=== PATIENT | female | born 1965 | race Hispanic/Latino ===

== ENCOUNTER 2021-02-24 07:06 | Day surgery (SDC) | payer OTHER ==
[~2021-02-24] VITALS: Ht 142.2 cm; Wt 95.3 kg
[~2021-02-24 07:06] MED LIST: 0.9%NACL 1000ML 1,000 ML IV ONE; LISI10TA24 PO; METF-444 PO
[2021-02-24 07:36] LABS: CREATININE 0.6 mg/dL (0.5-1.5)
[2021-02-24 07:44] VITALS: BP 151/84
[2021-02-24] MEDS ORDERED: PROPOFOL 10 MG/ML 20ML VIAL IV ONE (08:31)
[2021-02-24 08:50] VITALS: BP 98/72
[2021-02-24 08:55] VITALS: BP 128/82
== END 2021-02-24 09:20 | disposition home or self-care (01) ==
LOC: DAH 07:06 → ENDO 07:06
PROVIDERS: ATTEND Internal Medicine
DX: R13.10 Dysphagia, unspecified (principal); K92.2 Gastrointestinal hemorrhage, unspecified; R10.9 Unspecified abdominal pain; K31.7 Polyp of stomach and duodenum; K31.89 Other diseases of stomach and duodenum; I10 Essential (primary) hypertension; E11.9 Type 2 diabetes mellitus without complications; E66.01 Morbid (severe) obesity due to excess calories; Z68.37 Body mass index [BMI] 37.0-37.9, adult; Z90.710 Acquired absence of both cervix and uterus; Z79.84 Long term (current) use of oral hypoglycemic drugs; Z79.899 Other long term (current) drug therapy; Z20.822 Contact with and (suspected) exposure to COVID-19
CPT/HCPCS: 36415; 43239; 43251; 80048; 82948; 87635; 88305; 88341; 88342; A4215; A4221; A4222; A4606; A4663; C9803; J2704; J7030